=== PATIENT | female | born 1990 | race Caucasian/White ===

== ENCOUNTER 2020-02-12 16:55 | Emergency (ER) | payer OTHER, SELFPAY ==
[2020-02-12 17:53] VITALS: BP 119/84; PULSE 69; RESP 16; TEMP 37.5; O2SAT 99; BMI 21.3
--- NOTE | 2020-02-12 18:11 | XR_ITS ---
EXAMINATION: XR NASAL BONES CLINICAL INFORMATION: Injury to nose COMPARISON: None TECHNIQUE: 3 views of the nasal bones were obtained. FINDINGS: There are no fractures or dislocations. No bone, joint or soft tissue abnormality is demonstrated. The paranasal sinuses are well aerated without air-fluid levels. XR/XR nasal bones min 3V IMPRESSION: Unremarkable examination.
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
== END 2020-02-12 19:30 | disposition home or self-care (01) ==
PROVIDERS: Emergency Provider Internal Medicine; PCP Nurse Practitioner Adult Health
DX: S00.33XA Contusion of nose, initial encounter (principal); J34.89 Other specified disorders of nose and nasal sinuses; Y04.8XXA Assault by other bodily force, initial encounter; Y93.9 Activity, unspecified; Y92.9 Unspecified place or not applicable; Y99.9 Unspecified external cause status
CPT/HCPCS: 70160; 99283

== ENCOUNTER 2020-04-05 13:14 | Outpatient (REF) | payer OTHER, SELFPAY | END 2020-04-05 13:15 | disposition home or self-care (01) | LOC: HO.LAB 13:14 | PROVIDERS: PCP Nurse Practitioner Adult Health; Visit Provider Internal Medicine | DX: Z20.828 Contact with and (suspected) exposure to other viral communicable diseases (principal) | CPT/HCPCS: C9803; U0003 ==

== ENCOUNTER 2025-01-11 13:35 | Outpatient (AMB) | payer OTHER, SELFPAY ==
--- NOTE | 2025-01-11 13:41 | A.OFFPC_ITS ---
Vital Signs 01/11/25 14:05 Height 5 ft 11 in Weight 194 lb 2 oz BMI 27.1 BP 100/80 Blood Pressure Location Lt brachial Position Sitting Respiration 13 Pulse 76 Pulse Source Pulse Oximeter Temp 98.3 F Temp Source Temporal Artery Scan Pulse Oximetry (%) 97 Oxygen Delivery Method Room Air Intake Visit Reasons: SEAMAN OFFICER-thyroid/pe Intake Note: Laura presents in the office today to establish care and discuss her thyroid Allergies lactose Allergy (Verified 01/11/25 14:01) Stomach Upset tomato (Tomato) Adverse Reaction (Unknown, Unverified 01/11/25 14:00) NAUSEA Tobacco use date assessed: 01/11/25 Dental Screening Dental Screen Date: 01/11/25 Did you have a dental visit in the last 12 months?: No Did you have a dental problem in the last 6 months where you did not have access to dental care?: No Was dental information given to patient?: Patient declined HPI HPI Comments History of Present Illness Details This is a 34-year-old female with a past medical history of hypo thyroidism presenting to establish care. She is due for a physical. Hypothyroidism-Diagnosed around age 11 years. There is a family history of hypothyroidism. Taking Levothyroxine 112 mcg daily. She has been trying to lose weight. She walks and cut out refined sugars like soda and candy. She usually eats subway for lunch. Nonsmoker. Drinks alcohol only socially once or twice per month. Recommended eye and dental exams. She does not have a instructional material director. I explained this is recommended as part of a physical exam to screen for cancers and Infectious Disease, but she declines referral. She is currently engaged. Her fiance is a female wrestler. She is excited to get . They want to buy a house and have children. She declines tetanus and influenza vaccines. ROS: Constitutional: No unexplained weight loss, fever, chills, fatigue or night sweats. Eyes: No vision changes, blurry vision, double vision, eye pain, eye redness, eye discharge. ENT: No hearing loss, sneezing, congestion, runny nose or sore throat. Respiratory: No shortness of breath, cough or sputum production. Cardiovascular: No chest pain, chest pressure or chest discomfort. No palpita tions or pedal edema. Gastrointestinal: No anorexia, nausea, vomiting or diarrhea. No abdominal pain or blood in stool. Genitourinary: No dysuria, hematuria, urinary frequency. Denies vaginal dischar ge. Patient says menstrual periods are normal. Neurologic: No headache, dizziness, syncope, unilateral weakness, ataxia, numbness or tingling in the extremities. Musculoskeletal: Patient had a tailbone injury a few years ago which was it recently exacerbated when she was working at the [employer] she took ibuprofen. She has no pain today. Hematologic/Lymphatics: No bleeding or bruising. No painful lymph nodes. Skin: No rash or itching. Endocrine: No cold or heat intolerance. No polyuria or polydipsia. Psychiatric: No depression or anxiety. No SI/HI. Physical exam: Constitutional: Alert, in no distress. Head: Normocephalic. Eyes: Pupils are equal, round and reactive to light. Extraocular muscles intact. Ear, Nose and Throat: Canals clear. TMs normal. Normal nasal mucosa. No nasal discharge. No oral lesions. Neck: Supple, Full range of motion. No lymphadenopathy. No palpable thyroid masses. Respiratory: Clear to auscultation. Cardiovascular: S1 S2 regular. No murmurs. Gastrointestinal: Abdomen soft, non-tender, non-distended. Normal bowel sounds. No palpable masses. Neurologic: No focal neurological deficits. Symmetric patellar reflexes. Moves all extremities spontaneously. Sensation intact bilaterally. Skin: No rashes Musculoskeletal: No gross deformities. Normal range of motion. Extremities: Warm and well perfused. No clubbing, cyanosis or edema. Intact peripheral pulses bilaterally. Psychiatric: Normal mood and affect [facility] Medical History (Updated 01/11/25 @ 14:44 by MIGDALIA Waddell) Routine physical examination Overweight Screening for cardiovascular condition Hypothyroid Family History (Updated 01/11/25 @ 14:05 by Giuliana Flaherty CMA) Mother Hypothyroid Diabetes Social History (Updated 01/11/25 @ 14:05 by Giuliana Flaherty CMA) Housing: Apartment Alcohol intake: current Alcohol intake frequency: holidays/special occasions only Alcohol type: beer and wine Patient Tobacco Use Status: Never used Tobacco e-Cigarette/Vaping Use: Never Used Second Hand Smoke Exposure: No service: No Current occupational status: employed Current occupation: [employer], [employer] Current occupational exposures/hazards: Yes Cognitive needs: No Hearing needs: No Vision needs: No Questionnaire PHQ-9 Over the last 2 weeks, how often have you been bothered by any of the following problems? 1. Little interest or pleasure in doing things: not at all 2. Feeling down, depressed, or hopeless: several days 3. Trouble falling or staying asleep, or sleeping too much: not at all 4. Feeling tired or having little energy: not at all 5. Poor appetite or overeating: not at all 6. Feeling bad about yourself - or that you are a failure or have let yourself or your family down: not at all 7. Trouble concentrating on things, such as reading the newspaper or watching television: not at all 8. Moving or speaking so slowly that other people could have noticed. Or the opposite - being so fidgety or restless that you have been moving around a lot more than usual: not at all 9. Thoughts that you would be better off or of hurting yourself in some way: not at all Total score: 1 Depression Screening Interpretation: Negative Depression Screening Done: Yes [id number] - PHQ-9 Billing: Yes Source: Developed by Drs. Herminio Hobbs, Anali Reyna, Lars Doe and colleagues, with an educational nayeli from [employer]. Thrive Questionnaire Date Thrive assessed: 01/11/25 I am a: Patient What is your living situation today?: I have a steady place to live Within the past 12 months, did the food you bought not last and you didn't have the money to get more?: Never true Within the past 12 months, did you worry whether your food would run out before you got money to buy more?: Never true Do you have trouble paying for medicines?: I choose not to answer this question Do you have trouble getting transportation to medical appointments?: No Do you have trouble paying your heating and electricity bill?: No Do you have trouble taking care of your child, family member or friend?: No Do you have trouble with day-to-day activities such as bathing, preparing meals, shopping, managing finances, etc.?: No Are you currently unemployed and looking for a job?: No Are you interested in more education?: No Please select the resources that you would like help with: None Currently or been in a relationship where the following occur: I choose not to answer THRIVE Score: 0 AUDIT C Alcohol Use Questionnaire (AUDIT-C) 1. How often do you have a drink containing alcohol?: 2-4 times a month 2. How many drinks containing alcohol do you have on a typical day when you are drinking?: 1 or 2 3. How often do you have six or more drinks on one occasion?: Less than monthly Total Score: 3 DAMIAN-7 AMB Questionnaire DAIMAN-7 Date DAMIAN - 7 assessed: 01/11/25 Feeling nervous, anxious, or on edge: 1 = Several days Not being able to stop or control worryin = Several days Worrying too much about different things: 1 = Several days Trouble relaxin = Not at all Being so restless that it is hard to sit still: 1 = Several days Becoming easily annoyed or irritable: 0 = Not at all Feeling afraid as if something awful might happen: 0 = Not at all Total DAMIAN-7 score (0-4 normal; 5-9 mild; 10-14 moderate; 15-21 severe): 4 Source: Developed by Drs. Herminio Hobbs, Anali Reyna, Lars Doe and colleagues, with an educational nayeli from [employer]. DAMIAN-7 Assessment Billing DAMIAN-7 Assessment Tool: DAMIAN-7 Assessment 19265 Physical exam (Primary Care) Vital Signs: Last Vital Signs Temp 98.3 F 01/11/25 14:05 Pulse 76 01/11/25 14:05 Resp 13 01/11/25 14:05 BP 100/80 01/11/25 14:05 Pulse Ox 97 01/11/25 14:05 Oxygen Delivery Method Room Air 01/11/25 14:05 BMI result Body Mass Index 27.1 Tobacco/Smoking Status: Tobacco use Status Tobacco use date assessed 01/11/25 01/11/25 14:09 Patient Tobacco Use Status Never used Tobacco 01/11/25 14:09 e-Cigarette/Vaping Use Never Used 01/11/25 14:09 PHQ-9: PHQ-9 Score PHQ-9: Total score 1 01/11/25 13:42 Depression Screening Interpretation: Negative Thrive Assessment: Date of Thrive Assessment Date Thrive assessed 01/11/25 01/11/25 13:42 Currently or been in a relationship where the following occur: I choose not to answer Coding Level of Care Code New Pt Prev Care 18-39yr(31211 Diagnoses Routine physical examination Z00.00 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 As part of this visit we reviewed the following issues, which are considered and essential part of preventative health in this age group: - Breast Cancer screening - Annual Duplicator Punch Operator exam - Blood pressure screening annually - Cholesterol screening - Osteoporosis prevention including calcium/vitamin D intake, weight bearing exercise & smoking cessation - Nutritional and exercise counseling - Counseling of injury prevention including fire prevention, smoke alarms and seat belt usage - Screening for depression - Prevention of and/or testing for infectious diseases- declines screenings - Education about skin cancer - Recommendations about immunizations - Recommendation of an eye exam - Screening for substance abuse (2) Hypothyroid: Code(s): E03.9 - Hypothyroidism, unspecified Category: Medical Qualifiers: Hypothyroidism type: due to Brent's thyroiditis Qualified Code(s): E06.3 - Autoimmune thyroiditis Plan: Continue levothyroxine. Check TSH. (3) Screening for cardiovascular condition: Code(s): Z13.6 - Encounter for screening for cardiovascular disorders Category: Medical (4) Overweight: Code(s): E66.3 - Overweight Category: Medical Plan: Patient requested Zepbound which will not be covered by insurance. BMI is also under 30. Lifestyle modifications reviewed. She would like to see the dietitian. Referred. Plan Follow up in 1 year for annual physical exam. Orders: Orders Lipid Panel Today E03.9 - Hypothyroidism, unspecified, Z13.6 - Encounter for screening for cardiovascular disorders Complete Blood Count no Diff Today E03.9 - Hypothyroidism, unspecified, Z13.6 - Encounter for screening for cardiovascular disorders Comprehensive Met. Panel Today E03.9 - Hypothyroidism, unspecified, Z13.6 - Encounter for screening for cardiovascular disorders TSH reflex Free T4 Today E03.9 - Hypothyroidism, unspecified, Z13.6 - Encounter for screening for cardiovascular disorders Referrals Patient Registration Specialist Nutrition Referral E66.3 - Overweight Medications: New levothyroxine (Levoxyl) 112 mcg PO DAILY 90 tabs 2RF
[2025-01-11 14:05] VITALS: BP 100/80; PULSE 76; RESP 13; TEMP 36.8; O2SAT 97; BMI 27.1
--- OUTSIDE RECORDS SUMMARY | 2025-01-11 15:11 | XMS_ITS | Clinical Summary ---
Author Organization [facility] ity Address [address] [place] [address] Care Team Providers Care End Worker Name Role Phone Unavailable Primary Care Provider Unavailabl e Social History Tobacco Use Types Packs/Day Years Used Date Smoking Tobacco: Never Assessed Comments Unknown Sex and Gender Information Value Date Recorded Sex Assigned at Not on file Legal Sex Female 9:02 PM EST Gender Identity Not on file Sexual Orientation Not on file Plan of Treatment Health Maintenance Due Date Last Done Comments DTaP,Tdap,and Td Vaccines (1 - Tdap) 2008 Hepatitis B Vaccines (1 of 3 - 19+ 3-dose series) 2008 Cervical Cancer Screening: P ap Smear 2010 HIV Screening 05/10/2023 Hepatitis C Screening 05/10/2023 Social Influencers of Health Screening 05/10/2023 Depression Screening 04/15/2024 COVID-19 Vaccine (2023-2 5 season) 2024 Influenza Vaccine (#1) 2024 HIB Vaccines Aged Out No longer eligi ble based on patient's age to complete this topic HPV Vaccines Aged Out No longer eligi ble based on patient's age to complete this topic Hepatitis A Vaccines Aged Out No long er eligible based on patient's age to complete this topic IPV Vaccines Aged Out No longer eligi ble based on patient's age to complete this topic MMR Vaccines Aged Out No longer eligi ble based on patient's age to complete this topic Meningococcal ACWY Vaccine Aged Out N o longer eligible based on patient's age to complete this topic Meningococcal B Vaccine Aged Out No l onger eligible based on patient's age to complete this topic Pneumococcal Vaccine: Pediat rics (0 to 5 Years) and At-Risk Patients (6 to 49 Years) Aged Out No longer eligible b ased on patient's age to complete this topic RSV Immunization Patients Un og 20 months Aged Out No longer eligible b ased on patient's age to complete this topic Varicella Vaccines Aged Out No longer eligible based on patient's age to complete this topic
== END 2025-01-11 14:41 | disposition home or self-care (01) ==
PROVIDERS: PCP Physician Assistant Medical; Visit Provider Physician Assistant Medical
DX: Z00.00 Encounter for general adult medical examination without abnormal findings (principal); E06.3 Autoimmune thyroiditis; Z13.6 Encounter for screening for cardiovascular disorders; E66.3 Overweight

== ENCOUNTER → 2025-01-11 13:35 | Outpatient (BNVA) | payer OTHER, SELFPAY | PROVIDERS: PCP Family Medicine; Visit Provider Physician Assistant Medical | DX: Z00.00 Encounter for general adult medical examination without abnormal findings (principal); Z76.89 Persons encountering health services in other specified circumstances; E06.3 Autoimmune thyroiditis; E66.3 Overweight; Z68.27 Body mass index [BMI] 27.0-27.9, adult; Z79.899 Other long term (current) drug therapy; Z13.31 Encounter for screening for depression; Z13.39 Encounter for screening examination for other mental health and behavioral disorders | CPT/HCPCS: 96127; 99385 ==